=== PATIENT | male | born 1930 | race Caucasian/White ===

== ENCOUNTER → 2017-01-13 09:10 | Emergency (ER) | payer MEDICARE | END | disposition left against medical advice (07) | LOC: ER 09:10 | DX: Z53.21 Procedure and treatment not carried out due to patient leaving prior to being seen by health care provider (principal) ==

== ENCOUNTER → 2017-02-02 | Day surgery (SDC) | payer MEDICARE | END | disposition home or self-care (01) | LOC: SDC 14:13 | DX: N21.0 Calculus in bladder (principal); N32.3 Diverticulum of bladder; N32.89 Other specified disorders of bladder; N40.1 Benign prostatic hyperplasia with lower urinary tract symptoms; R39.14 Feeling of incomplete bladder emptying; N13.30 Unspecified hydronephrosis; I10 Essential (primary) hypertension; Z79.02 Long term (current) use of antithrombotics/antiplatelets; Z79.899 Other long term (current) drug therapy; F17.200 Nicotine dependence, unspecified, uncomplicated | CPT/HCPCS: C1758; C1894; J2704; Q9967 ==